=== PATIENT | female | born 1960 | race Caucasian/White ===

== ENCOUNTER 2019-10-31 08:50 | Observation (INO) ==
[2019-10-31] MEDS ORDERED: Ondansetron 4 MG/2 ML VIAL IVP ONE (08:59)
[2019-10-31] MEDS ORDERED: 0.9 % Sodium Chloride 500 ML IVC ONE (08:59)
[2019-10-31] MEDS ORDERED: GI Cocktail 40 ML EACH PO ONE (09:12)
[2019-10-31 09:30] LABS: Basophils % 0.3 %; Eosinophils # 0.1 K/mcL (0.0-0.6); Eosinophils % 0.5 %; Hematocrit 41.7 % (35.3-44.9); Hemoglobin 14.2 g/dL (11.5-15.4); Immature Granulocytes % 0.3 % (0-4); Lymphocytes # 1.2 K/mcL (0.6-4.6); Mean Corpuscular HGB Conc 34.1 g/dL (31.6-35.5); Mean Corpuscular Hemoglobin 31.9 pg (28.0-33.3); Mean Corpuscular Volume 93.7 fL (83.0-100.0); Mean Platelet Volume 8.8 fL (9.4-12.4); Monocytes # 0.5 K/mcL (0.0-1.3); Monocytes % 3.9 %; Neutrophils # 10.2 K/mcL (1.6-8.9); Platelet Count 350 K/mcL (140-400); Red Blood Count 4.45 M/mcL (3.82-4.97); Red Cell Distribution Width 13.1 % (11.5-14.5)
[2019-10-31] MEDS ORDERED: Isovue-370 500 ML BOTTLE IVP ONE (09:55)
[2019-10-31] MEDS ORDERED: *HR* FentaNYL (PF) 100 MCG/2 ML VIAL IVP ONE (09:57)
[2019-10-31] MEDS ORDERED: Aspirin 81 MG TAB.CHEW PO ONE (10:00)
[2019-10-31 10:36] LABS: BUN/Creatinine Ratio 14 (6-26); Blood Urea Nitrogen 9 mg/dL (8-23); Calcium 9.1 mg/dL (8.6-10.3); Carbon Dioxide 29 mEq/L (23-29); Chloride 94 mEq/L (98-107); Glucose 131 mg/dL (70-105); Osmolality,Calculated 276 (280-300); Potassium 3.8 mEq/L (3.5-5.1); Sodium 133 mEq/L (136-145); eGFR For African Americans > 60 (> 60); eGFR For Non-African Americans > 60 (> 60)
[2019-10-31] MEDS ORDERED: Naloxone 0.4 MG/ML INJ IVP PRN (13:27)
[2019-10-31] MEDS ORDERED: Ondansetron 4 MG/2 ML VIAL IVP PRN (13:27)
[2019-10-31] MEDS ORDERED: Ringers Solution, Lactated 1,000 ML IVC SCH (13:30)
[2019-10-31] MEDS ORDERED: Pantoprazole 40 MG VIAL IVP SCH (14:00)
[2019-10-31] MEDS ORDERED: cloNIDine HCL 0.1 MG TABLET PO ONE (14:01)
[2019-10-31] MEDS ORDERED: Acetaminophen 325 MG TABLET PO PRN (14:42)
[2019-10-31] MEDS: *HR* HYDROcodone/Acet 5/325 mg TABLET PO PRN (15:21)
[2019-10-31] MEDS ORDERED: *HR* Labetalol 20 MG/4 ML SYRINGE IVP ONE (15:54)
[2019-10-31] MEDS ORDERED: Nitroglycerin 0.4 MG TAB.SUBL SL PRN (17:55)
[2019-10-31] MEDS ORDERED: *HR* Labetalol 20 MG/4 ML SYRINGE IVP PRN (18:00)
[2019-10-31] MEDS ORDERED: *HR* Heparin 5,000 UNIT/ML VIAL SQ SCH (18:00)
[2019-10-31] MEDS: lisinopriL 10 MG TABLET PO SCH (20:18)
[2019-10-31] MEDS ORDERED: ROSUVASTATIN CALCIUM 10 MG PO SCH (21:00)
[2019-10-31] MEDS ORDERED: *HR* Heparin 5,000 UNIT/ML VIAL IVP PRN ×2 (23:03)
[2019-10-31] MEDS ORDERED: *HR* Heparin 5,000 UNIT/ML VIAL IVP ONE (23:03)
[2019-10-31] MEDS ORDERED: 0.9 % Sodium Chloride 1,000 ML IVC SCH (23:45)
[2019-11-01] MEDS: *HR* HYDROcodone/Acet 5/325 mg TABLET PO PRN ×2 (00:04→12:04)
[2019-11-01 00:16] LABS: Heparin anti-factor XA UFH 0.04 IU/mL (0.30-0.70)
[2019-11-01 00:17] LABS: INR 1.1; Prothrombin Time 12.2 Seconds (9.4-12.1)
[2019-11-01] MEDS: Heparin 25,000 UNIT/250 ML D5W 25,000 UNIT/250 ML IV.SOLN IVC SCH (00:17)
[2019-11-01 00:21] LABS: Hematocrit 36.6 % (35.3-44.9); Mean Corpuscular HGB Conc 33.9 g/dL (31.6-35.5); Mean Corpuscular Hemoglobin 32.1 pg (28.0-33.3); Mean Corpuscular Volume 94.8 fL (83.0-100.0); Mean Platelet Volume 8.6 fL (9.4-12.4); Platelet Count 344 K/mcL (140-400); Red Blood Count 3.86 M/mcL (3.82-4.97); Red Cell Distribution Width 13.3 % (11.5-14.5); White Blood Count 12.7 K/mcL (4.3-11.1)
[2019-11-01 00:28] LABS: Hemoglobin 12.4 g/dL (11.5-15.4)
[2019-11-01 06:37] LABS: Basophils % 0.3 %; Eosinophils % 0.3 %; Hematocrit 35.6 % (35.3-44.9); Hemoglobin 11.8 g/dL (11.5-15.4); Immature Granulocytes % 0.2 % (0-4); Lymphocytes # 2.3 K/mcL (0.6-4.6); Lymphocytes % 21.7 %; Mean Corpuscular HGB Conc 33.1 g/dL (31.6-35.5); Mean Corpuscular Hemoglobin 31.9 pg (28.0-33.3); Mean Corpuscular Volume 96.2 fL (83.0-100.0); Mean Platelet Volume 8.5 fL (9.4-12.4); Monocytes % 9.3 %; Neutrophils # 7.1 K/mcL (1.6-8.9); Platelet Count 314 K/mcL (140-400); Red Cell Distribution Width 13.4 % (11.5-14.5); Segmented Neutrophils % 68.2 %; White Blood Count 10.4 K/mcL (4.3-11.1)
[2019-11-01] MEDS: Pantoprazole 40 MG VIAL IVP SCH ×2 (06:54→16:33)
[2019-11-01 06:59] LABS: BUN/Creatinine Ratio 17 (6-26); Blood Urea Nitrogen 15 mg/dL (8-23); Calcium 8.4 mg/dL (8.6-10.3); Carbon Dioxide 25 mEq/L (23-29); Chloride 101 mEq/L (98-107); Chol/HDL Ratio 2.2 (0-4.9); Cholesterol 194 mg/dL (< 200); Glucose 105 mg/dL (70-105); HDL Cholesterol 90 mg/dL (40-59); LDL Cholesterol,Calculated 72 mg/dL (< 100); Osmolality,Calculated 279 (280-300); Potassium 3.9 mEq/L (3.5-5.1); Sodium 134 mEq/L (136-145); Triglycerides 158 mg/dL (< 150); Troponin I 0.18 ng/mL (< 0.04); eGFR For African Americans > 60 (> 60); eGFR For Non-African Americans > 60 (> 60)
[2019-11-01 08:10] LABS: Estimated Average Glucose 134 mg/dl; Hemoglobin A1C 6.3 %
[2019-11-01] MEDS: Aspirin Enteric Coated 81 MG Tablet PO SCH (08:48)
[2019-11-01] MEDS: Cholecalciferol (D-3) 1,000 UNIT (25MCG) TABLET PO SCH (08:48)
[2019-11-01] MEDS: lisinopriL 10 MG TABLET PO SCH ×2 (11:40→19:28)
[2019-11-02] MEDS: Heparin 25,000 UNIT/250 ML D5W 25,000 UNIT/250 ML IV.SOLN IVC SCH (04:09)
[2019-11-02 04:37] LABS: Hematocrit 32.9 % (35.3-44.9); Hemoglobin 10.5 g/dL (11.5-15.4); Mean Corpuscular HGB Conc 31.9 g/dL (31.6-35.5); Mean Corpuscular Hemoglobin 30.8 pg (28.0-33.3); Mean Corpuscular Volume 96.5 fL (83.0-100.0); Mean Platelet Volume 8.7 fL (9.4-12.4); Platelet Count 292 K/mcL (140-400); Red Blood Count 3.41 M/mcL (3.82-4.97); Red Cell Distribution Width 13.5 % (11.5-14.5)
[2019-11-02] MEDS: Pantoprazole 40 MG VIAL IVP SCH (05:14)
[2019-11-02] MEDS ORDERED: Regadenoson 0.4 MG/5 ML SYRINGE IVP ONE (06:19)
[2019-11-02] MEDS: lisinopriL 10 MG TABLET PO SCH (09:02)
[2019-11-02] MEDS: Cholecalciferol (D-3) 1,000 UNIT (25MCG) TABLET PO SCH (09:08)
[2019-11-02] MEDS: Aspirin Enteric Coated 81 MG Tablet PO SCH (09:08)
[2019-11-02 10:43] VITALS: BP 122/71
== END 2019-11-02 13:49 | disposition home or self-care (01) ==
LOC: EMEROOARM 08:50 → 2ANU 08:50
PROVIDERS: ADMIT Internal Medicine; ATTEND Internal Medicine